=== PATIENT | male | born 1950 | race Caucasian/White ===

== ENCOUNTER → 2024-02-28 13:59 | Outpatient (REF) | payer MEDICARE, OTHER, SELFPAY | LOC: RAD 13:59 | PROVIDERS: ATTENDING PHYSICIAN Family Medicine; FAMILY PHYSICIAN Dentist Oral and Maxillofacial Surgery | DX: Z13.5 Encounter for screening for eye and ear disorders (principal) | CPT/HCPCS: 70030 ==

== ENCOUNTER → 2024-03-19 06:59 | Outpatient (REF) | payer MEDICARE, OTHER, SELFPAY | LOC: PAVMRI 06:59 | PROVIDERS: ATTENDING PHYSICIAN Dentist Oral and Maxillofacial Surgery; FAMILY PHYSICIAN Family Medicine | DX: M79.11 Myalgia of mastication muscle (principal) | CPT/HCPCS: 70336 ==

== ENCOUNTER → 2025-06-06 14:46 | Outpatient (REF) | payer MEDICARE, OTHER, SELFPAY | LOC: RCS 14:46 | PROVIDERS: ATTENDING PHYSICIAN Nuclear Medicine Nuclear Cardiology; FAMILY PHYSICIAN Family Medicine | DX: I25.10 Atherosclerotic heart disease of native coronary artery without angina pectoris (principal); I34.0 Nonrheumatic mitral (valve) insufficiency | CPT/HCPCS: 93306 ==

== ENCOUNTER → 2025-08-28 15:06 | Outpatient (REF) | payer MEDICARE, OTHER, SELFPAY | LOC: RAD 15:06 | PROVIDERS: ATTENDING PHYSICIAN Orthopaedic Surgery Hand Surgery | DX: M75.122 Complete rotator cuff tear or rupture of left shoulder, not specified as traumatic (principal); M25.512 Pain in left shoulder | CPT/HCPCS: 70030 ==

== ENCOUNTER → 2025-09-05 10:44 | Outpatient (REF) | payer MEDICARE, OTHER, SELFPAY | LOC: PAVMRI 10:44 | PROVIDERS: ATTENDING PHYSICIAN Orthopaedic Surgery Hand Surgery; FAMILY PHYSICIAN Family Medicine | DX: M75.121 Complete rotator cuff tear or rupture of right shoulder, not specified as traumatic (principal); M25.511 Pain in right shoulder; M75.41 Impingement syndrome of right shoulder | CPT/HCPCS: 73221 ==